=== PATIENT | female | born 1945 | race Caucasian/White ===

== ENCOUNTER 2019-05-15 12:45 | Day surgery (SDC) | payer OTHER ==
[~2019-05-15] VITALS: Ht 165.1 cm; Wt 82.2 kg
[~2019-05-15 12:45] MED LIST: CALCAVITD PO; HYDACE5325 PO; LOSA25 PO; METF500 PO; Prednisone10 MG; SIMV40 PO
--- NOTE | 2019-05-15 13:20 | NUR ---
05/15/19 [id number] Gilma Pizarro 1 TRY HAND BLEW RIGHT 2 TRY HAND RIGHT BLEW 3 TRY RIGHT WRIST GOOD
== END 2019-05-15 15:22 | disposition home or self-care (01) ==
LOC: ORSCSDS 12:45
PROVIDERS: Internal Medicine Gastroenterology
PROC: 0DBK8ZX Excision of Ascending Colon, Via Natural or Artificial Opening Endoscopic, Diagnostic (ICD-10-PCS; principal; 2019-05-15 14:45)
PROC: 0DBM8ZX Excision of Descending Colon, Via Natural or Artificial Opening Endoscopic, Diagnostic (ICD-10-PCS; principal; 2019-05-15 14:45)
PROC: 0DBL8ZX Excision of Transverse Colon, Via Natural or Artificial Opening Endoscopic, Diagnostic (ICD-10-PCS; principal; 2019-05-15 14:45)
DX: Z12.11 Encounter for screening for malignant neoplasm of colon (principal); D12.2 Benign neoplasm of ascending colon; D12.3 Benign neoplasm of transverse colon; D12.4 Benign neoplasm of descending colon; K57.30 Diverticulosis of large intestine without perforation or abscess without bleeding; Z86.010 Personal history of colon polyps; I10 Essential (primary) hypertension; E11.9 Type 2 diabetes mellitus without complications; Z87.891 Personal history of nicotine dependence; Z79.84 Long term (current) use of oral hypoglycemic drugs; Z79.899 Other long term (current) drug therapy
CPT/HCPCS: 82947; 88305; J2704; J7120

== ENCOUNTER → 2020-08-19 | Outpatient (CLI) | payer OTHER ==
[2020-08-19 13:05] LABS: Protein, Urine Quantitative 158.8 mg/dL (0.0-11.9)
[2020-08-24 13:11] LABS: M-SPIKE, % Not Observed % (Not Observed); PROTEIN,TOTAL,URINE 129.5 mg/dL (Not Estab.)
== END | disposition home or self-care (01) ==
LOC: LAB SHORT 11:24 → LAB 11:24
PROVIDERS: Internal Medicine
DX: N18.32 Chronic kidney disease, stage 3b (principal)
CPT/HCPCS: 81050; 84156; 84166

== ENCOUNTER → 2021-09-26 | Outpatient (CLI) | payer OTHER ==
[2021-09-26 17:52] LABS: Creatinine, Urine Random 23.9 mg/dL (27.00-270.00); Protein, Urine Random 56.9 mg/dL (0.0-11.9); Protein/Creat Ratio, Ur Random 2.4
== END | disposition home or self-care (01) ==
LOC: LAB SHORT 12:33
PROVIDERS: Internal Medicine Nephrology
DX: N18.32 Chronic kidney disease, stage 3b (principal)
CPT/HCPCS: 82570; 84156

== ENCOUNTER 2022-10-31 12:37 | Day surgery (SDC) | payer OTHER ==
[~2022-10-31] VITALS: Ht 165.1 cm; Wt 75.7 kg
[2022-10-31] MEDS ORDERED: METO50ER (12:56)
--- NOTE | 2022-10-31 14:52 | NUR ---
10/31/22 1452 Melody Prasad LATE ENTRY: PT UPDATED TIMES 3 REGARDING DELAY IN START TIME FOR HER PROCEDURE DUE TO ANESTHESIA DELAY IN OTHER ENDO ROOM RUNNING LONGER THAN EXPECTED. BED IN LOW, LOCKED POSITION, CALL LIGHT IN REACH. PT OFFERED WARM BLANKET 3 TIMES BUT PT DECLINED.
[2022-10-31 16:06] VITALS: BP 126/67
== END 2022-10-31 16:06 | disposition home or self-care (01) ==
LOC: ORSCSDS 12:37
PROVIDERS: Internal Medicine Gastroenterology
PROC: 0DBM8ZX Excision of Descending Colon, Via Natural or Artificial Opening Endoscopic, Diagnostic (ICD-10-PCS; principal; 2022-10-31 14:00)
DX: Z12.11 Encounter for screening for malignant neoplasm of colon (principal); Z86.010 Personal history of colon polyps; Z85.118 Personal history of other malignant neoplasm of bronchus and lung; R19.5 Other fecal abnormalities; K57.30 Diverticulosis of large intestine without perforation or abscess without bleeding; E11.9 Type 2 diabetes mellitus without complications; Z79.84 Long term (current) use of oral hypoglycemic drugs; Z79.899 Other long term (current) drug therapy
CPT/HCPCS: 82947; 88302; J2704; J7120

== ENCOUNTER → 2023-02-06 | Outpatient (CLI) | payer OTHER ==
[~2023-02-06] MED LIST changes: +METO50ER
[2023-02-06 14:05] LABS: LDL/HDL RATIO 0.8; Very Low Density Lipoprot Chol 47 mg/dL (6-32)
[2023-02-06 14:06] LABS: Alanine Aminotransfer (ALT/SGP 27 U/L (12-78); Albumin, Blood 3.4 g/dL (3.4-5.0); Albumin/Globulin Ratio 0.8 (0.8-1.8); Alk Phos 86 U/L (50-136); Anion Gap 8 mmol/L (6-16); Aspartate Aminotrans (AST/SGOT 24 U/L (12-37); Bilirubin, Total 0.8 mg/dL (0.1-1.0); Blood Urea Nitrogen 39 mg/dL (8-24); Bun/Creatinine Ratio 25.8 (12.0-20.0); CO2, Blood 23 mmol/L (21-32); Calcium, Blood 9.3 mg/dL (8.5-10.1); Chloride, Blood 112 mmol/L (98-108); Cholesterol 124 mg/dL (50-200); Creatinine, Blood 1.51 mg/dL (0.40-1.00); Globulin, Blood 4.5 g/dL (2.2-4.0); Glomerular Filtration Rate 35 (60-); Glucose, Blood 161 mg/dL (70-99); HDL Cholesterol 42 mg/dL (>39); Low Density Lipoprotein Chol 35 mg/dL (0-110); Potassium, Blood 4.2 mmol/L (3.5-5.5); Sodium, Blood 143 mmol/L (136-145); Total Protein, Blood 7.9 g/dL (6.4-8.2); Triglycerides 236 mg/dL (30-160)
== END ==
LOC: LAB 12:38 → LAB SHORT 12:38
PROVIDERS: Family Medicine
DX: I10 Essential (primary) hypertension (principal); E11.9 Type 2 diabetes mellitus without complications; E78.5 Hyperlipidemia, unspecified
CPT/HCPCS: 80053; 80061; 83036

== ENCOUNTER → 2025-05-18 | Outpatient (CLI) | payer OTHER ==
[~2025-05-18] MED LIST changes: +Crestor40 MG PO; +FARXIGA10 MG PO; +MAGNESIUM; +ONE DAILY WOME1 EAC2; +THERA-D2000 UNIT; +ZYRTEC10 M2
== END | disposition home or self-care (01) ==
LOC: LAB 07:12 → LAB SHORT 07:12
DX: D49.0 Neoplasm of unspecified behavior of digestive system (principal)
CPT/HCPCS: 88173

== ENCOUNTER 2025-06-04 03:43 | Day surgery (SDC) | payer OTHER ==
[~2025-06-04 03:43] MED LIST changes: -MAGNESIUM; +MAGNESIUM PO; -METO50ER; +METO50ER PO
[2025-06-04] MEDS ORDERED: NS 1,000 ML IV SCH (07:00)
[2025-06-04 09:41] VITALS: BP 156/89
== END 2025-06-04 10:52 | disposition home or self-care (01) ==
LOC: ATC 03:43
DX: C32.0 Malignant neoplasm of glottis (principal); I12.9 Hypertensive chronic kidney disease with stage 1 through stage 4 chronic kidney disease, or unspecified chronic kidney disease; E11.22 Type 2 diabetes mellitus with diabetic chronic kidney disease; E78.5 Hyperlipidemia, unspecified; N18.9 Chronic kidney disease, unspecified; J43.9 Emphysema, unspecified; Z87.891 Personal history of nicotine dependence
CPT/HCPCS: 96360; 99211; J7030